=== PATIENT | female | born 1965 | race Caucasian/White ===

== ENCOUNTER 2019-01-30 18:16 | Emergency (ER) | payer OTHER, BC ==
[2019-01-30] MEDS ORDERED: LIDOCAINE 1% INJ 10MG/ML (20 ML MDV) SQ ONE (18:48)
[2019-01-30] MEDS ORDERED: DIPH,PERTUS(ACELL)TETVAC-LF 0.5 ML VIAL IM ONE (18:49)
[2019-01-30] MEDS ORDERED: ceFAZolin 1,000 MG VIAL IM STA (18:49)
--- NOTE | 2019-01-30 19:29 | XR ---
EXAMINATION TYPE: XR hand complete RT DATE OF EXAM: 01/30/2019 COMPARISON: NONE HISTORY: Pain TECHNIQUE: 3 views FINDINGS: Metacarpals are intact. I see no fracture nor dislocation. Joint spaces are normal. There a re no erosions. IMPRESSION: Negative right hand exam. No fracture.
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
[2019-01-30 20:43] VITALS: BP 157/95; PULSE 95; RESP 17; TEMP 98.2
== END 2019-01-30 20:30 | disposition home or self-care (01) ==
LOC: EC 18:16
DX: S61.421A Laceration with foreign body of right hand, initial encounter (principal); S61.411A Laceration without foreign body of right hand, initial encounter; Z23 Encounter for immunization; Z85.820 Personal history of malignant melanoma of skin; Z88.2 Allergy status to sulfonamides; V29.9XXA Motorcycle rider (driver) (passenger) injured in unspecified traffic accident, initial encounter; Y92.410 Unspecified street and highway as the place of occurrence of the external cause
CPT/HCPCS: 99284 ×2; 12042 ×2; 12001 ×2; 90471 ×2; 96372 ×2; 73130; 90715; J0690; J2001

== ENCOUNTER → 2024-02-17 | Outpatient (CLI) | payer OTHER ==
--- NOTE | 2024-02-17 21:17 | MM ---
Reason for Exam: Follow-up at short interval from prior study. Last screening mammogram was performed 6 month(s) ago. Patient History: Menarche at age 15. First Full-Term at age 24. Postmenopausal. Maternal aunt had breast cancer at or over age 50. Maternal grandmother had breast cancer. Risk Values: Ronel 5 year model risk: 1.1%. NCI Lifetime model risk: 7.2%. Prior Study Comparison: 08/20/2022 Bilateral MG 3D screening mammo w/cad, Unknown. 08/24/2023 Bilateral MG 3D screening mammo w/cad, Unknown. 08/25/2023 Right MG work up mamm w CAD RT, Unknown. Tissue Density: Right: The breasts are heterogeneously dense, which may obscure small masses. Findings: Analyzed By CAD. Pattern appears stable. No suspicious persistent nodularity evident. No suspicious groups of microcalcifications, spiculated or lobular masses, architectural distortion or other secondary signs of malignancy are mammographically apparent. Overall Assessment: Benign, BI-RAD 2 Management: Screening Mammogram of both breasts in 6 months. A negative mammogram report should not preclude additional follow up of suspicious palpable abnormalities. Patient should continue monthly self breast exam. A clinical breast exam by your physician is recommended on an annual basis and results should be correlated with mammographic findings. Note on Ronel scores and lifetime risk: 1. A Ronel score greater than 3% is considered moderate risk. If this is the case, consider specialist referral to assess eligibility for a risk reducing agent. 2. If overall lifetime risk for the development of breast cancer is 20% or higher, the patient may qualify for future screening with alternating mammogram and breast MRI. Electronically signed and approved by: Ricki Torrez D.O. Radiologis
== END | disposition home or self-care (01) ==
LOC: RADMAMWWP 13:41
PROVIDERS: ATTEND Obstetrics & Gynecology
DX: R92.331 Mammographic heterogeneous density, right breast (principal); Z78.0 Asymptomatic menopausal state; Z80.3 Family history of malignant neoplasm of breast
CPT/HCPCS: 77061; 77065